=== PATIENT | male | born 1965 | race Caucasian/White ===

== ENCOUNTER 2017-03-04 02:28 | Emergency (ER) | payer BC ==
[~2017-03-04] VITALS: Ht 182.8 cm; Wt 81.6 kg
[~2017-03-04 02:28] MED LIST: ASPIRIN81 M1 PO; BP MED; CLINDAMYCIN HC300 MG PO; COMBIVENT1 ARO IH; COREG12.5 MG PO; DULCOLAX5 MG PO; IBUPROFEN200 M1 PO; MEDROL DOSEPAK4 MG PO; PERCOCET 325 MG1 TA5 PO; XANAX1 MG PO
[2017-03-04 02:34] VITALS: BP 148/98
[2017-03-04] MEDS ORDERED: CARVEDILOL6.25 MG PO (02:34)
[2017-03-04] MEDS ORDERED: CLOPIDOGREL75 MG PO (02:34)
[2017-03-04] MEDS ORDERED: ASPIRIN ADULT L81 M2 PO (02:34)
[2017-03-04] MEDS ORDERED: ACULAR 3ML 3 ML5 ML OPH (03:16)
[2017-03-04] MEDS ORDERED: HYDROCODONE BIT1 T11 PO (03:16)
[2017-03-04] MEDS ORDERED: TOBRAMYCIN 5 ML5 M2 OPH (03:16)
== END 2017-03-04 03:53 | disposition home or self-care (01) ==
LOC: ED 02:28
DX: S05.01XA Injury of conjunctiva and corneal abrasion without foreign body, right eye, initial encounter (principal); Z79.899 Other long term (current) drug therapy; Z79.82 Long term (current) use of aspirin; X58.XXXA Exposure to other specified factors, initial encounter; Y93.9 Activity, unspecified; Y92.9 Unspecified place or not applicable; Y99.9 Unspecified external cause status

== ENCOUNTER 2018-01-08 19:04 | Emergency (ER) | payer OTHER, BC ==
[~2018-01-08] VITALS: Ht 182.8 cm; Wt 90.7 kg
[2018-01-08 19:04] VITALS: BP 156/87
[~2018-01-08 19:04] MED LIST changes: +ACULAR 3ML 3 ML5 ML OPH; +ASPIRIN ADULT L81 M2 PO; +CARVEDILOL6.25 MG PO; +CLOPIDOGREL75 MG PO; +HYDROCODONE BIT1 T11 PO; +TOBRAMYCIN 5 ML5 M2 OPH
[2018-01-08] MEDS ORDERED: MEDROL DOSEPAK4 MG PO (20:04)
[2018-01-08] MEDS ORDERED: NAPROSYN500 MG PO (20:04)
[2018-01-08] MEDS ORDERED: CYCLOBENZAPRINE10 MG PO (20:04)
== END 2018-01-08 20:39 | disposition home or self-care (01) ==
LOC: ED 19:04
DX: S16.1XXA Strain of muscle, fascia and tendon at neck level, initial encounter (principal); Z79.82 Long term (current) use of aspirin; V49.69XA Unspecified car occupant injured in collision with other motor vehicles in traffic accident, initial encounter; Y93.89 Activity, other specified; Y92.488 Other paved roadways as the place of occurrence of the external cause; Y99.8 Other external cause status

== ENCOUNTER → 2019-10-28 | Outpatient (CLI) | payer BC ==
[~2019-10-28] MED LIST changes: +CYCLOBENZAPRINE10 MG PO; +NAPROSYN500 MG PO
== END | disposition home or self-care (01) ==
LOC: CARD 13:00
DX: I51.7 Cardiomegaly (principal); I35.8 Other nonrheumatic aortic valve disorders; Z95.2 Presence of prosthetic heart valve